=== PATIENT | female | born 1960 | race Caucasian/White ===

== ENCOUNTER 2022-12-07 13:25 | Emergency (ER) | payer BC ==
[2022-12-07] MEDS ORDERED: iohexoL-300 100 ML VIAL ONE (14:10)
[2022-12-07 14:22] LABS: BASOPHILS % (AUTO) 0.1 %; EOSINOPHILS % (AUTO) 0.2 %; HCT - HEMATOCRIT 39.8 % (37.0-47.0); HGB - HEMOGLOBIN 13.2 g/dL (12.0-16.0); LYMPHOCYTES # (AUTO) 1.3 10^3/uL (1.5-3.5); LYMPHOCYTES % (AUTO) 8.2 %; MEAN CORPUSCULAR HEMOGLOBIN 25.9 pg (27.0-31.0); MEAN CORPUSCULAR HGB CONC 33.2 g/dL (32.0-36.0); MEAN PLATELET VOLUME 9.4 fL (7.9-10.8); MONOCYTES # (AUTO) 0.9 10^3/uL (0.0-1.0); MONOCYTES % (AUTO) 5.8 %; NEUTROPHILS % (AUTO) 85.2 %; PLT - PLATELET COUNT 419 10^3/uL (130-450); RED CELL DISTRIBUTION WIDTH 12.9 % (12.0-15.0); WHITE BLOOD COUNT 15.3 x10^3/uL (4.8-10.8)
[2022-12-07 14:33] LABS: ALBUMIN/GLOBULIN RATIO 1.3 (1.0-2.2); BILIRUBIN,TOTAL 0.5 mg/dL (0.2-1.0); CALCIUM 9.2 mg/dL (8.5-10.3); CREATININE 0.7 mg/dL (0.4-1.0); POTASSIUM 3.2 mmol/L (3.5-5.0); TOTAL PROTEIN 7.2 g/dL (6.7-8.2)
--- NOTE | 2022-12-07 15:40 | CT Report ---
PROCEDURE: ANGIO HEAD W/WO INDICATIONS: L sided facial droop CONTRAST: 80ml Omnipaque 300 TECHNIQUE: Precontrast 4.5 mm thick angled axial sections acquired from the foramen magnum to the vertex. Afte r the administration of intravenous contrast, 1 mm thick sections acquired through the [place] of [place] is. Postcontrast 4.5 mm thick sections then re-acquired from the foramen magnum to the vertex. 3-di mensional xdrjznv-bxtyrbupc-dgbhmqibgm (MIP) and/or volume rendering reformats were acquired of the c entral intracranial vasculature. For radiation dose reduction, the following was used: automated ex posure control, adjustment of mA and/or kV according to patient size. COMPARISON: CTA dated 12/07/2021 FINDINGS: Image quality: Excellent. Anterior circulation: Intracranial internal carotid arteries are normal in size and flow. The flow within the paired anterior cerebral arteries is normal and symmetric. The flow within the middle cer ebral arteries is normal and symmetric. The anterior communicating artery is seen. No aneurysms are seen. Posterior circulation: There is a slight left vertebral artery dominance. Visualized portions of the vertebral arteries demonstrate normal caliber, and join to form a normal appearing basilar artery. Flow within the posterior cerebral arteries is normal and symmetric. No aneurysms are seen. CSF spaces: Ventricles are normal in size and shape. Basal cisterns are patent. No extra-axial flu id collections. Brain: No midline shift. No intracranial bleeds or masses. Mason-white matter interface appears int act. Skull and face: Calvarium and facial bones appear intact, without suspicious lesions. Sinuses: Visualized sinuses and mastoids are clear. IMPRESSION: 1. No acute intracranial process. 2. No areas of hemodynamically significant stenosis, vascular occlusion or aneurysmal dilation within the anterior or posterior circulation. Reviewed by: Nya Daugherty MD on 12/07/2022 3:39 PM PST Approved by: Nya Daugherty MD on 12/07/2022 3:39 PM PST Station ID: [id number]
--- NOTE | 2022-12-07 15:41 | CT Report ---
PROCEDURE: ANGIO NECK W INDICATIONS: L sided facial droop, L neck pain CONTRAST: 80ml Omnipaque 300 TECHNIQUE: After the administration of intravenous contrast, 1.5 mm axial sections acquired from the aortic arch to the [place] of [place]. Coronal 3-D maximum intensity projection (MIP) and/or volume rendering ref ormats were then performed. For radiation dose reduction, the following was used: automated exposur e control, adjustment of mA and/or kV according to patient size. COMPARISON: CTA head 12/07/2021 FINDINGS: Image quality: Excellent. Carotid system: The great vessels demonstrate a conventional anatomy as they arise from the aortic a rc. The origins of the common carotid arteries appear patent. The common carotid arteries demonstr ate normal calibers and courses. The bifurcation regions appear normal bilaterally. The internal ca rotid arteries demonstrate normal caliber and course. Posterior circulation: The origins of the vertebral arteries appear patent. The more superior porti ons of the vertebral arteries demonstrate normal course and caliber. They join to form a normal appe aring basilar artery. Soft tissues: Visualized neck soft tissues demonstrate no suspicious abnormalities. The thyroid is normal in size and there are no incidental findings. Bones: No suspicious bony lesions. Visualized cervical spine appears normally aligned. IMPRESSION: There are no areas of hemodynamically significant stenosis, vascular occlusion or aneurysmal dilation within the neck vasculature. The estimate of stenosis included in the report of the imaging study was calculated using the NASCET method CLINICAL RECOMMENDATION STATEMENTS: In patients <35 years with an ITN detected on CT, MRI, or extrathyroidal ultrasound, the Committee re commends further evaluation with dedicated thyroid ultrasound if the nodule is "e1 cm and has no susp icious imaging features, and if the patient has normal life expectancy. In patients "e35 years with an ITN detected on CT, MRI, or extrathyroidal ultrasound, the Committee r ecommends further evaluation with dedicated thyroid ultrasound if the nodule is "e1.5 cm and has no s uspicious imaging features, and if the patient has normal life expectancy. (ACR, 2014) Reviewed by: Nya Daugherty MD on 12/07/2022 3:40 PM PST Approved by: Nya Daugherty MD on 12/07/2022 3:40 PM PST Station ID: [id number]
--- NOTE | 2022-12-07 16:23 | ED Physician Documentation ---
History of Present Illness - Stated complaint Stated Complaint: SOA - Chief complaint Chief Complaint: Neuro - History obtained from History obtained from: Patient - Additonal information Additional information: The patient comes to the emergency department chief complaint of left body numbness that started about 4 5 days ago. She states that she had just flown back from [place] and after the flight, noticed that she had some numbness going down her left leg. She states she did not think a whole lot of it because she has a history of sciatica and thought maybe she had just sat wrong on the plane. She states the symptoms seem to subside into the evening, but the next day, they were back and worse. Patient states that because of the numbness, her legs feels heavy and it has been hard to move it normally. She did not notice distinctive weakness, but just the heavy sensation along with not feeling the leg very well. She states that over the next couple of days, she began to notice that her left arm was also becoming numb and then last night, her left flank became numb. She states that she has sensation but it seems in some ways decreased but in other ways, hypersensitive, especially when something rubs on her skin. She states she tried to use a loofah in the shower this morning and when she used it on her left side, the sensation was very uncomfortable and unbearable. The patient denies any other neurologic symptoms. She states that in all the numb areas, her strength seems decreased, but it is also difficult to feel. She denies any other complaints at this time. She states that other than some orthopedic issues, she is otherwise healthy. She did make an appointment with her orthopedist in about a week to follow-up on this issue but she decided to finally come in here and get checked out after speaking with her son this morning. PD PAST MEDICAL HISTORY - Present Medications Home Medications: Ambulatory Orders Medication Instructions Recorded Confirmed Aspirin [[place] Aspirin] 81 mg PO DAILY #30 ea 12/07/22 Clopidogrel [Plavix] 75 mg PO DAILY #30 tablet 12/07/22 - Allergies Allergies/Adverse Reactions: Allergies Allergy/AdvReac Type Severity Reaction Status Date / Time amoxicillin Allergy Nausea Verified 12/07/22 13:41 PD ED PE NORMAL - Vitals Vital signs reviewed: Yes - General General: Alert and oriented X 3, No acute distress, Well developed/nourished - HEENT HEENT: Atraumatic, PERRL, EOMI, Moist mucous membranes - Neck Neck: Supple, no meningeal sign - Cardiac Cardiac: RRR, No murmur, Strong equal pulses - Respiratory Respiratory: No respiratory distress, Clear bilaterally - Abdomen Abdomen: Soft, Non tender, Non distended - Derm Derm: Normal color, Warm and dry, No rash - Extremities Extremities: No deformity, No edema - Neuro Neuro: Alert and oriented X 3, manager student services 2-12 intact, Normal speech, Other (Slightly decreased sensation to touch through the left upper and lower extremities. Strength is 5 - in both the left upper and lower extremities compared with 5+ in the right upper and lower extremities. Ambulatory on a narrow-based but slightly slowed and deliberate gait. No foot drop noted. ) - Psych Psych: Normal mood, Normal affect PD ED PE EXPANDED - Free text exam Free text exam: Normal unweighted active range of motion of left upper and lower extremities. No ataxia. Results - Vitals Vitals: Vital Signs - 24 hr 12/07/22 12/07/22 16:36 18:49 Heart Rate 83 84 Respiratory 16 16 Rate Blood Pressure 150/89 H 158/90 H O2 Saturation 100 99 Oxygen O2 Source Room air - EKG (time done) 1806 Rate: Rate (enter#) (88) Rhythm: NSR [place]: Normal Intervals: Normal HI QRS: LVH Ischemia: Normal ST segments Compare to prior EKG: Old EKG unavailable Computer interpretation: Agree with computer - Labs Labs: Laboratory Tests 12/07/22 12/07/22 14:15 14:15 WBC 15.3 H RBC 5.10 Hgb 13.2 Hct 39.8 MCV 78.0 L MCH 25.9 L MCHC 33.2 RDW 12.9 Plt Count 419 MPV 9.4 Neut # (Auto) 13.0 H Lymph # (Auto) 1.3 L [place] # (Auto) 0.9 Eos # (Auto) 0.0 Baso # (Auto) 0.0 Absolute Nucleated RBC 0.00 Nucleated RBC % 0.0 Sodium 129 L Potassium 3.2 L Chloride 92 L Carbon Dioxide 25 Anion Gap 12.0 BUN 18 Creatinine 0.7 Estimated GFR (MDRD) 84 L Glucose 125 H Calcium 9.2 Total Bilirubin 0.5 AST 19 ALT 20 Alkaline Phosphatase 73 Total Protein 7.2 Albumin 4.0 Globulin 3.2 Albumin/Globulin Ratio 1.3 Lipase 41 - Rads (name of study) CT head noncontrast Radiology: Final report received, See rad report (Negative) CT angiogram head Radiology: Final report received, See rad report (Negative) CT angiogram neck Radiology: Final report received, See rad report (Negative) MR brain Radiology: Final report received, See rad report (Subacute small thalamic infarct) PD Medical Decision Making - ED course Complexity details: reviewed results, re-evaluated patient, considered differential, d/w patient ED course: The patient was very well-appearing but did have mild sensory and motor deficits on the left compared to the right. Given the somewhat stuttering and slowly progressive course of the patient's symptoms, I felt it was less likely the patient had had a CVA. She did not have any signs of spinal cord compromise, and even the weakness that she had seemed most likely to be secondary to the lack of sensation. I discussed with her that the most emergent thing to evaluate at this point in time is whether or not she has had a CVA, however, and our work-up in the ED will reflect that. Her CT noncontrast, as well as her angios of the head and neck were ordered and evaluated by me and finally interpreted by the radiologist, and found to be unremarkable. I ordered an MRI of the brain. CBC and ER abdominal panel were ordered and reviewed by me and unremarkable. MR by a radiology interpretation did show a small subacute thalamic infarct. I discussed these findings with the patient. The patient has no significant carotid stenosis on angiogram and does not have any other stenosis anywhere else that is identifiable on CT. She has no murmur on exam and has a regular heart rate and rhythm. Her EKG demonstrates a normal sinus rhythm, and I feel the likelihood of mural thrombus or valvular thrombus is very low. At this point in time, the patient is days past the onset of symptoms and she has received a full work-up here in the emergency department and I do not feel that the inpatient management is going to yield any further benefit. I have started the patient on aspirin and Plavix here in the emergency department. She is returning to her home in [place] in several days and I have advised her that tomorrow morning, she should call and make an appointment with her primary care physician there so that she can seen immediately upon return. I have recommended an echocardiogram when she gets back and also, to discuss with her doctor whether rehab/physical therapy might be helpful. I have prescribed aspirin and Plavix for her and we have discussed the usual indications for return. Departure - Departure Disposition: Home, Self Care Clinical Impression: Thalamic stroke Condition: Stable Instructions: Stroke Self Care, ED Stroke Completed Prescriptions: Clopidogrel [Plavix] 75 mg PO DAILY #30 tablet Aspirin [[place] Aspirin] 81 mg PO DAILY #30 ea Comments: Your CT scan of the head and your CT angiograms of the head and neck all looked good. Due to your progressive numbness over the last several days, we did go ahead and get an MRI to, and this did show a small stroke in the area of your br ain that among other things processes sensation. This is most likely the cause of the numbness you have been feeling. There was no evidence of a stroke in the areas of your brain that process movement, and as such, it is most likely that the sense of heaviness in your leg is due more than anything to the incomplete sensation. At this point in time, there is no evidence of any enduring blockages in the major circulation of your brain, and you have neither an abnormal rhythm or murmur on your heart exam and EKG. As such, there is not a lot else to do in terms of the stroke that has already happened. We will put you on 2 medications to help prevent formation of further blockages in your vessels. You have been given first doses of these medications tonight, and prescription for the same has been electronically transmitted to the [facility] pharmacy in [place] at your request. Since you are visiting from out of town, it is best that you follow-up with your doctor immediately when you get back. In fact, you should call first thing tomorrow to get the appointment set up so that when you get home, you can move forward with your care. Some considerations would be getting an ultrasound of your heart just to be sure that there is no clot or other contribution to the stroke that you have had. The other consideration would be physical therapy or some sort of outpatient rehab to help you regain function. You can talk to your doctor about whether you should be referred to a neurologist or not. Discharge Date/Time: 12/07/22 19:00
[2022-12-07] MEDS ORDERED: iohexoL-300 100 ML VIAL IVP ONE (16:34)
--- NOTE | 2022-12-07 17:26 | MRI Report ---
PROCEDURE: BRAIN WO INDICATIONS: LUE/LLE numb/weak TECHNIQUE: Noncontrast axial T1 spin echo, axial T2 fast spin echo, sagittal and axial FLAIR, coronal T2 fast sp in echo, axial gradient echo, axial diffusion and ADC through the brain. COMPARISON: None. FINDINGS: Image quality: Excellent. CSF Spaces: Basal cisterns are patent. No extra-axial fluid collections. Ventricles are normal in size and shape. Brain: No intracranial masses or hemorrhage. Mild volume loss. Mild degree of patchy high FLAIR sig nal within the periventricular and subcortical white matter. Mason/white matter interface is normal. Brainstem appears normal. Diffusion-weighted images demonstrate a 10 mm focus of elevated signal int ensity within the right posterior lateral thalamus which demonstrates low ADC map signal as well as m oderate FLAIR signal elevation. No chronic ischemic insults. Normal intravascular flow voids are pre sent. Skull and face: Calvarium has normal marrow signal. Orbits appear normal. Sinuses: Sinuses and mastoids are clear. IMPRESSION: 1. Small subacute infarct within the right thalamus. 2. Mild volume loss and small vessel ischemic disease. Reviewed by: Daphne Mcmanus MD on 12/07/2022 5:25 PM PST Approved by: Daphne Mcmanus MD on 12/07/2022 5:25 PM PST Station ID: [id number]
[2022-12-07] MEDS ORDERED: POTASSIUM CHLORIDE 20 MEQ TABLET PO STA (18:01)
[2022-12-07] MEDS ORDERED: ASPIRIN CHEW 81 MG TABLET PO STA (18:26)
[2022-12-07] MEDS ORDERED: CLOPIDOGREL 75 MG TABLET PO STA (18:26)
[2022-12-07 18:50] VITALS: BP 158/90
== END 2022-12-07 19:00 | disposition home or self-care (01) ==
LOC: ED 13:25
DX: I63.81 Other cerebral infarction due to occlusion or stenosis of small artery (principal)
CPT/HCPCS: 36415; 70496; 70498; 70551; 80053; 83690; 85025; 93005; 99284; A9270; Q9967

== ENCOUNTER 2022-12-08 21:17 | Emergency (ER) | payer BC ==
--- NOTE | 2022-12-08 21:52 | ED Physician Documentation ---
PD HPI CHEST PAIN - Stated complaint Stated Complaint: TIGHT CHEST, WEAKNESS LFT SIDE - History obtained from History obtained from: Patient - History of Present Illness Timing - onset: How many days ago (5) Timing - details: Abrupt onset, Waxing and waning Quality: Pain Location: Left chest Improved by: Other (no ameliorating factors) Worsened by: Other (no exacerbating factors) Associated symptoms: No: Shortness of air, Nausea, Vomiting, Feeling faint / dizzy, General Weakness, Palpitations Recently seen: Emergency Dept - Additional information Additional information: HPI from patient. Patient complains of 5 days of left-sided paresthesias, from mid face down to her left toes. Symptoms Initially involved the lateral aspect of the left leg; symptoms started shortly after flying to [facility] from [place]. She initially attributed the paresthesias (which she describes as "numbness" although she also says she is having decreased sensation rather than complete lack of sensation") to possible sciatica/nerve impingement. However, over the ensuing several days, she had waxing and waning, but generally increasing, degree of decrease in station, as well as spread of the area affected to her left abdominal flank, left chest, and left upper extremity. She does presented to the emergency department yesterday for evaluation the symptoms. She denies history of having any similar symptoms. The work-up performed yesterday included CTA of the head and the neck as well as MR of the brain. There are no findings on the CTA head nor the CTA neck, but the brain MRI did show a small subacute infarct within the right thalamus. She was discharged from the emergency department with prescriptions for low-dose aspirin (81 mg p.o. daily) and Plavix (75 mg p.o. daily). She was instructed to contact her primary care provider to arrange for soonest available appointment for follow-up. Part of the discharge instructions included return precautions, and patient indeed returns tonight because she says she feels the symptoms are worsening. She says the area affected has spread to include left side of the lower face, the left aspect of the neck. She also says she has some degree of actual discomfort of the left lower chest and left upper abdomen, although her description sounds consistent with worsening paresthesia/dysesthesia. She is having waxing and waning "heaviness" of the left lower extremity, although this is not a new complaint; although she says the leg feels "heavy" she does not feel rossy weakness Review of Systems Constitutional: denies: Fever, Chills, Sweats Cardiac: reports: Chest pain / pressure. denies: Palpitations, Pedal edema, Calf pain Respiratory: reports: Reviewed and negative GI: reports: Reviewed and negative : denies: Incontinent Skin: denies: Rash Musculoskeletal: denies: Neck pain, Back pain Neurologic: reports: Numbness, Headache. denies: Generalized weakness, Focal weakness PD PAST MEDICAL HISTORY - Past Medical History Past Medical History: Yes Cardiovascular: Hypertension - Past Surgical History Past Surgical History: Yes Ortho: Spine surgery (C5-C6 fusion) - Present Medications Home Medications: Ambulatory Orders Medication Instructions Recorded Confirmed Aspirin [[place] Aspirin] 81 mg PO DAILY #30 ea 12/07/22 Clopidogrel [Plavix] 75 mg PO DAILY #30 tablet 12/07/22 Atorvastatin Calcium 40 mg PO DAILY #30 tablet 12/09/22 - Allergies Allergies/Adverse Reactions: Allergies Allergy/AdvReac Type Severity Reaction Status Date / Time amoxicillin Allergy Nausea Verified 12/08/22 21:53 PD ED PE NORMAL - Vitals Vital signs reviewed: Yes - General General: Alert and oriented X 3, No acute distress, Well developed/nourished - HEENT HEENT: PERRL, EOMI - Neck Neck: Supple, no meningeal sign - Cardiac Cardiac: RRR, No murmur, No gallop, No rub - Respiratory Respiratory: No respiratory distress, Clear bilaterally - Abdomen Abdomen: Soft, Non tender - Derm Derm: Normal color, Warm and dry, No rash - Extremities Extremities: No tenderness to palpate, Normal ROM s pain, No edema - Neuro Neuro: Alert and oriented X 3, wildlife manager 2-12 intact, No motor deficit (5/5 strength in bilateral element winding machine tender, dorsiflexion/plantarflexion, ilipsoas (hip extension), and knee extension), Other (subjective decreased LTS left lower face, LUE, and LLE (although only lateral aspect of LLE)) Eye Opening: Spontaneous Motor: Obeys Commands Verbal: Oriented GCS Score: 15 - Psych Psych: Normal mood, Normal affect Results - Vitals Vitals: Oxygen O2 Source Room air - EKG (time done) No standard instances Rate: Rate (enter#) (85) Rhythm: NSR [place]: LAD Intervals: Normal ND QRS: Normal Ischemia: Normal ST segments - Labs Labs: Laboratory Tests 12/08/22 12/08/22 12/08/22 23:26 23:26 23:26 WBC 10.6 RBC 4.88 Hgb 12.8 Hct 38.0 MCV 77.9 L MCH 26.2 L MCHC 33.7 RDW 12.9 Plt Count 345 MPV 9.3 Neut # (Auto) 6.5 Lymph # (Auto) 2.8 [place] # (Auto) 1.0 Eos # (Auto) 0.1 Baso # (Auto) 0.0 Absolute Nucleated RBC 0.00 Nucleated RBC % 0.0 Sodium 126 L Potassium 3.6 Chloride 90 L Carbon Dioxide 23 Anion Gap 13.0 BUN 14 Creatinine 0.7 Estimated GFR (MDRD) 84 L Glucose 93 Calcium 8.7 Total Bilirubin 0.8 AST 21 ALT 19 Alkaline Phosphatase 64 Troponin I High Sens 4.5 Total Protein 6.4 L Albumin 3.5 Globulin 2.9 Albumin/Globulin Ratio 1.2 Lipase 40 PD Medical Decision Making - ED course Complexity details: reviewed old records (reviewed ED note from yesterday's [facility] ED visit including results of blood tests and imgaing studies), reviewed results, re-evaluated patient, considered differential, d/w patient ED course: Patient returns after being treated and released from this emergency department yesterday for symptoms attributable to a small, subacute right thalamic infarct. She returns to 2 fluctuation or symptoms with some degree of worsening of the paresthesias and discomfort. Tonight's EKG has no concerning or acute findings. Repeat blood tests similarly have no concerning or diagnostic findings. Mild hypokalemia was noted on yesterday's testing, but resolved with a normal potassium on tonight's draw. She has mild hyponatremia comparable to yesterday's result. I discussed this patient's case with the on-call neurologist for [facility]. He confirms that patient's symptoms, including some degree of waxing and waning as well as the mild worsening of her symptoms tonight, would be consistent with the thalamic infarct noted on yesterday's MRI. He says patient is safe and appropriate for discharge at this time, and his only other recommendation is to start the patient on atorvastatin 40 mg p.o. daily (in addition to continuing the low-dose aspirin and the Plavix that were prescribed by my colleague yesterday). I discussed with the patient the summary of my consult with the neurologist as well as the recommendation to start her on the atorvastatin. Patient expresses understanding of, and comfort with, this plan. She is given 40 mg atorvastatin p.o. in the emergency department and a prescription is provided prior to discharge. Return precautions discussed Departure - Departure Disposition: Home, Self Care Clinical Impression: Thalamic stroke Condition: Good Instructions: ED Stroke Completed Prescriptions: Atorvastatin Calcium 40 mg PO DAILY #30 tablet Comments: There were no concerning findings on rakesh's blood tests nor on the EKG. I discussed your case with the neurologist on-call at [facility] (in [place], [place]). He recommends that I start you on atorvastatin; this is a cholesterol medication, but it is typically recommended in the setting of a heart attack or stroke no matter the cholesterol level. As we discussed, we did not check lipid/cholesterol levels in the emergency department because this will not affect the recommendation to take this medication. The neurologist I discussed your case with says that it is not unusual for the symptoms of this type of stroke to wax and wane over the course of several days. Follow-up with your primary care provider next week as scheduled. Certainly, as you did rakesh, it would be prudent to return to the nearest emergency department if your symptoms worsen, or if you develop new/concerning signs/symptoms (such as severe headache, difficulty speaking, visual changes). Discharge Date/Time: 12/09/22 04:53
[2022-12-08 23:38] LABS: BASOPHILS % (AUTO) 0.4 %; EOSINOPHILS # (AUTO) 0.1 10^3/uL (0.0-0.7); EOSINOPHILS % (AUTO) 1.2 %; HGB - HEMOGLOBIN 12.8 g/dL (12.0-16.0); LYMPHOCYTES # (AUTO) 2.8 10^3/uL (1.5-3.5); LYMPHOCYTES % (AUTO) 26.8 %; MEAN CORPUSCULAR HEMOGLOBIN 26.2 pg (27.0-31.0); MEAN CORPUSCULAR HGB CONC 33.7 g/dL (32.0-36.0); MEAN CORPUSCULAR VOLUME 77.9 fL (81.0-99.0); MEAN PLATELET VOLUME 9.3 fL (7.9-10.8); MONOCYTES % (AUTO) 9.4 %; NEUTROPHILS # (AUTO) 6.5 10^3/uL (1.5-6.6); NEUTROPHILS % (AUTO) 61.3 %; PLT - PLATELET COUNT 345 10^3/uL (130-450); RED BLOOD COUNT 4.88 10^6/uL (4.20-5.40); RED CELL DISTRIBUTION WIDTH 12.9 % (12.0-15.0); WHITE BLOOD COUNT 10.6 x10^3/uL (4.8-10.8)
[2022-12-08 23:51] LABS: ALBUMIN 3.5 g/dL (3.2-5.5); ALBUMIN/GLOBULIN RATIO 1.2 (1.0-2.2); BILIRUBIN,TOTAL 0.8 mg/dL (0.2-1.0); CALCIUM 8.7 mg/dL (8.5-10.3); CREATININE 0.7 mg/dL (0.4-1.0); POTASSIUM 3.6 mmol/L (3.5-5.0); TOTAL PROTEIN 6.4 g/dL (6.7-8.2)
[2022-12-09 04:25] VITALS: BP 140/83
[2022-12-09] MEDS ORDERED: IBUPROFEN 600 MG TABLET PO STA (04:25)
[2022-12-09] MEDS ORDERED: ATORVASTATIN 40 MG TABLET PO STA (04:26)
== END 2022-12-09 04:53 | disposition home or self-care (01) ==
LOC: ED 21:17
DX: I63.81 Other cerebral infarction due to occlusion or stenosis of small artery (principal)
CPT/HCPCS: 36415; 80053; 83690; 84484; 85025; 93005; 99284; A9270